=== PATIENT | female | born 1985 | race Caucasian/White ===

== ENCOUNTER 2018-01-19 06:04 | Inpatient (IN) | payer OTHER ==
[2018-01-19] MEDS ORDERED: CITRIC ACID-SODIUM CITRATE 15 ML CUP PO ONE (06:30)
[2018-01-19] MEDS ORDERED: LACTATED RINGERS 1,000 ML IV SCH (06:30)
[2018-01-19] MEDS ORDERED: LACTATED RINGERS 1,000 ML IV ONE (06:30)
[2018-01-19 06:52] VITALS: BMI 25.7
[2018-01-19 07:10] LABS: Basophils % (A) 0 %; Eosinophils # (A) 0.1 k/uL (0-0.7); Eosinophils % (A) 1 %; HCT 36.4 % (34.0-46.0); HGB 12.1 gm/dL (11.4-16.0); Lymphocytes # (A) 1.6 k/uL (1.0-4.8); Lymphocytes % (A) 18 %; MCH 30.7 pg (25.0-35.0); MCHC 33.4 g/dL (31.0-37.0); MCV 92.1 fL (80.0-100.0); Monocytes # (A) 0.6 k/uL (0-1.0); Monocytes % (A) 6 %; Neutrophils # (A) 6.6 k/uL (1.3-7.7); Neutrophils % (A) 74 %; Platelet Count 161 k/uL (150-450); RBC 3.95 m/uL (3.80-5.40); RDW 13.4 % (11.5-15.5); WBC 8.9 k/uL (3.8-10.6)
[2018-01-19] MEDS ORDERED: CLINDAMYCIN 600 MG in DEXTROSE 5% IN WATER 50 ML IVPB STA ×2 (07:37)
[2018-01-19] MEDS ORDERED: KETOROLAC 30 MG/ML 1 ML VIAL ONE (08:07)
[2018-01-19] MEDS ORDERED: MORPHINE SULFATE (PF) 0.3 MG/0.3 ML SYR ONE (08:07)
[2018-01-19] MEDS ORDERED: NALBUPHINE 10 MG/ML VIAL (10ML MDV) ONE (08:07)
[2018-01-19] MEDS ORDERED: OXYTOCIN 10 UNIT/ML 1 ML VIAL ONE (08:07)
[2018-01-19] MEDS ORDERED: DEXAMETHASONE SOD PHOS (MDV) 100 MG/10 ML VIAL ONE (08:07)
[2018-01-19] MEDS ORDERED: ONDANSETRON 4 MG/2 ML VIAL ONE (08:07)
[2018-01-19] MEDS ORDERED: KETOROLAC 30 MG/ML 1 ML VIAL IVP PRN (08:31)
[2018-01-19] MEDS ORDERED: diphenhydrAMINE 50 MG/ML 1 ML VIAL IVP PRN ×3 (08:31→08:46)
[2018-01-19] MEDS ORDERED: NALBUPHINE 10 MG/ML VIAL (10ML MDV) IV PRN (08:31)
[2018-01-19] MEDS ORDERED: HYDROmorphone 1 MG/ML 1 ML SYRINGE IVP PRN (08:31)
[2018-01-19] MEDS ORDERED: NALOXONE 0.4 MG/ML 1 ML VIAL IV PRN (08:31)
[2018-01-19] MEDS ORDERED: ONDANSETRON 4 MG/2 ML VIAL IVP PRN ×2 (08:31→08:46)
[2018-01-19] MEDS ORDERED: SIMETHICONE 80 MG CHEWABLE PO PRN (08:46)
[2018-01-19] MEDS ORDERED: HYDROcodone/APAP 5-325MG 1 EACH TAB PO PRN (08:46)
[2018-01-19] MEDS ORDERED: MEASLES-MUMPS-RUBELLA VACC/PF 12,500 UNIT/0.5 ML VIAL SQ ONE (08:46)
[2018-01-19] MEDS ORDERED: METOCLOPRAMIDE 5 MG/ML 2 ML VIAL IVP PRN (08:46)
[2018-01-19] MEDS ORDERED: diphenhydrAMINE 25 MG CAP PO PRN (08:46)
[2018-01-19] MEDS ORDERED: diphenhydrAMINE 50 MG CAP PO PRN (08:46)
--- NOTE | 2018-01-19 08:49 | P.HPOB ---
History of Present Illness H&P Date: 01/19/18 Chief Complaint: Intrauterine at term: Previous section Sophia is a 32-year-old at 39 weeks gestation who ryes for repeat section. Her Precis course has been, complicated by anemia. She also has hypothyroidism. She did fail her 1 hour Glucola screen but passed her 3 hour Glucola screen. Pertinent labs could be negative blood type Rh antibody was negative. Rubella was immune, hepatitis B surface antigen and RPR were negative as was groupie strep. She has no other issues or concerns and there is a category 1 tracing prior to going to the operating suite. All questions were answered for her prior to proceeding. Risks/benefits/alternatives had previously been thoroughly reviewed. Past Medical History Past Medical History: Thyroid Disorder Additional Past Medical History / Comment(s): Hypothyroidism History of Any Multi-Drug Resistant Organisms: None Reported Past Surgical History: Section Additional Past Surgical History / Comment(s): [place] teeth removed Past Anesthesia/Blood Transfusion Reactions: Postoperative Nausea & Vomiting ( PONV) Past Psychological History: ADD/ADHD Smoking Status: Former smoker Past Alcohol Use History: None Reported Additional Past Alcohol Use History / Comment(s): QUIT SMOKING 2015 Past Drug Use History: None Reported - Past Family History Mother Family Medical History: No Reported History Medications and Allergies Home Medications Medication Instructions Recorded Confirmed Type Ferrous Sulfate [Iron] 325 mg PO DAILY 11/17/17 01/19/18 History Pnv No.95/Ferrous Fum/Folic AC 1 tab PO DAILY 11/17/17 01/19/18 History [ Multivitamin Tablet] Levothyroxine Sodium [Synthroid] 75 mcg PO DAILY 01/14/18 01/19/18 History Allergies Allergy/AdvReac Type Severity Reaction Status Date / Time Penicillins Allergy Rash/Hives Verified 01/19/18 06:14 Exam Osteopathic Statement: *. No significant issues noted on an osteopathic structural exam other than those noted in the History and Physical/Consult. Vital Signs Temp Pulse Resp BP 01/19/18 06:45 98.1 F 65 18 114/61 Intake and Output 01/18/18 01/19/18 01/19/18 22:59 06:59 14:59 Other: Weight 68.039 kg - OBG Physical Exam Breast: both: normal (no masses) Abdomen: bowel sounds normal, no diffuse tenderness, no bruit present, no guarding noted, no hepatomegaly, no splenomegaly, no mass Vulva: both: normal Vagina: normal moisture, no discharge Cervix: no lesion, no discharge Uterus: normal size, normal contour Adnexa: both: normal Anus/Rectum: normal perianal skin, no rectal mass, no hemorrhoids, heme negative Results Result Diagrams: 01/19/18 06:30
--- NOTE | 2018-01-19 08:53 | P.OP ---
Date of Procedure: 01/19/18 Preoperative Diagnosis: Intrauterine at term: Previous section Postoperative Diagnosis: Same Procedure(s) Performed: Repeat low transverse section Anesthesia: spinal Surgeon: Jono Jackson Soot Blower #1: Rosy Travis Estimated Blood Loss (ml): 600 IV fluids (ml): 200 Pathology: none sent Condition: stable Disposition: floor Operative Findings: Male scores of 9 and 9 at one and 5 minutes Jose J weight was 8 lbs. 12 oz. Description of Procedure: Patient was taken to the operating suite where a spinal anesthetic was found be adequate. She was prepped and draped in the normal sterile fashion and placed in the dorsal supine position with leftward tilt. Initially a Pfannenstiel skin incision was made and this incision was then carried through to the underlying layer of the fascia with a second knife. Fascia was then nicked in the midline and this opening was extended laterally with Anaya scissors. Both the superior and inferior aspect of this incision were then grasped tented up and bluntly and sharply dissected off the rectus muscles. Rectus muscles were then divided the midline and sharp dissection through the peritoneum was made. This opening was then extended superiorly and inferiorly with good visualization of both bowel bladder. Bladder was noted be relatively high from previous section during this process remained intact. Once this was accomplished bladder was bluntly dissected out of the operative field and knife was then used to incise uterus. This opening was fully developed with a hemostat and then extended bluntly. Head was then atraumatically delivered nuchal cord 1 reduced. Anterior and posterior shoulders were then delivered with gentle downward upper traction followed by the remainder the baby. Mouth nares were bulb suctioned and umbilical cord was clamped cut usual fashion with nursery personnel present to assume care. Blood was collected for Rh- status. Placenta was then delivered intact and uterus was exteriorized cleared of clots and debris and closed in 2 layers with 0 Vicryl suture. Once excellent hemostasis was obtained 3-0 Vicryl was used to reapproximate the bladder flap. Blood and debris was then suctioned from the posterior cul-de-sac and the uterus was reinserted into the abdomen. Peritoneal layer was then closed with 0 Vicryl suture fascial layer was closed with 0 Vicryl suture one layer of 3-0 Vicryl was used to reapproximate subcuticular tissues. Skin was then closed with 3-0 Vicryl. Sponge, lap, needle counts were all correct 2. Patient was then taken to the recovery room in stable and satisfactory condition.
[2018-01-19] MEDS: LACTATED RINGERS 1,000 ML IV SCH ×2 (10:00→18:24)
[2018-01-19] MEDS: SENNOSIDES-DOCUSATE SODIUM 1 EACH TAB PO SCH (20:02)
[2018-01-19] MEDS: KETOROLAC 30 MG/ML 1 ML VIAL IVP PRN (20:03)
[2018-01-20] MEDS: LACTATED RINGERS 1,000 ML IV SCH (03:30)
[2018-01-20] MEDS: KETOROLAC 30 MG/ML 1 ML VIAL IVP PRN (04:07)
--- NOTE | 2018-01-20 06:25 | P.PN ---
Progress Note - Text Progress Note Date: 01/20/18 32-year-old female status post section with Duramorph spinal. Patient is doing well ambulating well pain is 0/10. However patient does state that she 's had some urinary retention and has been unable to go to the bathroom.
[2018-01-20 07:49] LABS: Basophils % (A) 0 %; Eosinophils % (A) 0 %; HCT 26.3 % (34.0-46.0); Lymphocytes # (A) 2.1 k/uL (1.0-4.8); Lymphocytes % (A) 17 %; MCH 31.8 pg (25.0-35.0); MCHC 34.3 g/dL (31.0-37.0); MCV 92.8 fL (80.0-100.0); Monocytes # (A) 0.7 k/uL (0-1.0); Monocytes % (A) 5 %; Neutrophils # (A) 9.2 k/uL (1.3-7.7); Neutrophils % (A) 76 %; Platelet Count 147 k/uL (150-450); RBC 2.83 m/uL (3.80-5.40); RDW 13.3 % (11.5-15.5); WBC 12.2 k/uL (3.8-10.6)
[2018-01-20] MEDS: ACETAMINOPHEN TAB 325 MG TAB PO PRN ×2 (08:16→20:49)
[2018-01-20] MEDS: SENNOSIDES-DOCUSATE SODIUM 1 EACH TAB PO SCH ×2 (08:16→20:49)
--- NOTE | 2018-01-20 08:50 | P.PNOBGPC ---
Subjective - Subjective Principal diagnosis: POD 1 Patient reports: Reports appetite normal, Reports pain well controlled, Reports ambulating normally [place]: doing well (has not voided. needed straight cath x 2) Objective - Vital Signs Latest vital signs: Vital Signs Temp Pulse Resp BP Pulse Ox 01/20/18 05:00 14 01/20/18 04:00 97.9 F 69 14 98/57 95 01/20/18 03:00 14 01/20/18 01:00 14 01/19/18 23:48 97 01/19/18 23:44 98.3 F 67 16 112/58 97 01/19/18 23:00 16 01/19/18 21:00 16 01/19/18 20:00 97.6 F 59 L 16 105/85 97 01/19/18 19:00 20 01/19/18 17:00 20 01/19/18 15:38 96.8 F L 60 18 107/58 96 01/19/18 15:00 18 01/19/18 13:00 16 01/19/18 12:17 97 01/19/18 12:00 98.3 F 54 L 18 135/65 01/19/18 11:31 16 01/19/18 11:00 55 L 16 144/79 97 01/19/18 10:25 98.2 F 54 L 18 152/63 97 01/19/18 09:55 50 L 18 138/63 01/19/18 09:40 52 L 18 152/71 01/19/18 09:31 16 98 01/19/18 09:25 55 L 18 140/65 99 01/19/18 09:10 51 L 18 146/67 97 01/19/18 08:59 96.8 F L 156/78 Intake and Output 01/19/18 01/20/18 01/20/18 22:59 06:59 14:59 Intake Total 100 100 Output Total 1400 550 Balance -1300 -450 Intake: Oral 100 100 Output: Urine 1400 550 Straight 550 Other: # Voids 0 - Exam Lungs: bilateral: normal Chest: Normal S1, Normal S2 Extremities: Present: normal Abdomen: Present: normal appearance, soft. Absent: distention, tenderness Incision: Present: normal, dry, intact Uterus: Present: normal, firm - Labs Labs: Abnormal Lab Results - Last 24 Hours (Table) 08/14/18 Range/Units 07:22 WBC 12.2 H (3.8-10.6) k/uL RBC 2.83 L (3.80-5.40) m/uL Hgb 9.0 L D (11.4-16.0) gm/dL Hct 26.3 L (34.0-46.0) % Plt Count 147 L (150-450) k/uL Neutrophils # 9.2 H (1.3-7.7) k/uL
[2018-01-20] MEDS: IBUPROFEN 600 MG TAB PO PRN ×2 (11:28→18:20)
[2018-01-21] MEDS: IBUPROFEN 600 MG TAB PO PRN ×2 (00:17→07:03)
[2018-01-21] MEDS: LACTATED RINGERS 1,000 ML IV SCH (04:12)
--- NOTE | 2018-01-21 08:51 | P.DS ---
Providers Date of admission: 01/19/18 06:04 Expected date of discharge: 01/21/18 Attending physician: Jono Jackson Primary care physician: Stated None Hospital Course: Sophia is doing very well post op day 2. She is ambulating, voiding, and she is tolerating her diet. She voices no complaints. Vital signs are stable and afebrile. Heart regular, lungs clear, extremities are without pain. Osteopathic exam is unremarkable. Her incision is otherwise clean dry and intact and she has bowel sounds and is passing flatus. Today she is voiding without difficulty as well. All other questions were answered for her prior to discharge. Prescription for Motrin was sent to the pharmacy at her request. She'll follow up with me in 1 week. Patient Condition at Discharge: Good Plan - Discharge Summary Discharge Rx Participant: Yes New Discharge Prescriptions: New Ibuprofen [Motrin] 600 mg PO Q6HR PRN #30 tab PRN Reason: Pain No Action Pnv No.95/Ferrous Fum/Folic AC [ Multivitamin Tablet] 1 tab PO DAILY Ferrous Sulfate [Iron] 325 mg PO DAILY Levothyroxine Sodium [Synthroid] 75 mcg PO DAILY Discharge Medication List Ferrous Sulfate [Iron] 325 mg PO DAILY 11/17/17 [History] Pnv No.95/Ferrous Fum/Folic AC [ Multivitamin Tablet] 1 tab PO DAILY 04/26 [History] Levothyroxine Sodium [Synthroid] 75 mcg PO DAILY 01/14/18 [History] Ibuprofen [Motrin] 600 mg PO Q6HR PRN #30 tab 01/21/18 [Rx] Follow up Appointment(s)/Referral(s): Jono Jackson DO [Doctor of Osteopathic Medicine] - 1 Week Activity/Diet/Wound Care/Special Instructions: No heavy lifting, limit stairs and driving, and pelvic rest. If any high temperatures, heavy bleeding, or severe pain call my office Discharge Disposition: HOME SELF-CARE
[2018-01-21 09:37] VITALS: BP 103/63; PULSE 87; RESP 18; TEMP 98.5
[2018-01-21] MEDS: SENNOSIDES-DOCUSATE SODIUM 1 EACH TAB PO SCH (09:50)
== END 2018-01-21 12:15 | disposition home or self-care (01) | DRG 766 ==
LOC: 4FBP 06:04
PROVIDERS: ADMIT Obstetrics & Gynecology; ATTEND Obstetrics & Gynecology
PROC: 10D00Z1 Extraction of Products of Conception, Low, Open Approach (ICD-10-PCS; principal; 2018-01-19 08:00)
DX: O34.211 Maternal care for low transverse scar from previous cesarean delivery (principal); O99.02 Anemia complicating childbirth; O99.284 Endocrine, nutritional and metabolic diseases complicating childbirth; E03.9 Hypothyroidism, unspecified; O99.344 Other mental disorders complicating childbirth; F90.9 Attention-deficit hyperactivity disorder, unspecified type; O69.81X0 Labor and delivery complicated by cord around neck, without compression, not applicable or unspecified; O99.89 Other specified diseases and conditions complicating pregnancy, childbirth and the puerperium; R33.9 Retention of urine, unspecified; Z37.0 Single live birth; Z3A.39 39 weeks gestation of pregnancy; Z79.890 Hormone replacement therapy; Z87.891 Personal history of nicotine dependence; Z88.0 Allergy status to penicillin
CPT/HCPCS: 85025; 86850; 86900; 86901; 94760

== ENCOUNTER → 2018-12-30 | Outpatient (CLI) | payer SELFPAY ==
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
== END | disposition home or self-care (01) ==
LOC: RADUSWWP 15:29
PROVIDERS: ATTEND Obstetrics & Gynecology
DX: Z36.9 Encounter for antenatal screening, unspecified (principal)
CPT/HCPCS: 76801; 76813

== ENCOUNTER 2019-05-28 13:56 | Outpatient (CLI) | payer OTHER ==
[2019-05-28 15:29] LABS: Appearance,Urine Clear (Clear); Bacteria,Urine Occasional /hpf; Bilirubin,Urine Negative (Negative); Blood,Urine Negative (Negative); Color,Urine Yellow; Glucose,Urine (UA) Negative (Negative); Ketones,Urine Negative (Negative); Leukocyte Esterase,Urine Large (Negative); Nitrite,Urine Negative (Negative); Protein,Urine Trace (Negative); RBC,Urine 1 /hpf (0-5); Specific Gravity,Urine 1.011 (1.001-1.035); Squamous Epithelial Cell,Urine 5 /hpf (0-4); Urobilinogen,Urine <2.0 mg/dL (<2.0); WBC,Urine 8 /hpf (0-5)
[2019-05-28 15:30] LABS: Hyaline Casts,Urine 1 /lpf (0-2); Mucus,Urine Rare /hpf
[2019-05-28 15:51] LABS: Basophils # (A) 0.1 k/uL (0-0.2); Basophils % (A) 2 %; Eosinophils % (A) 0 %; HCT 29.8 % (34.0-46.0); HGB 10.1 gm/dL (11.4-16.0); Lymphocytes # (A) 1.7 k/uL (1.0-4.8); Lymphocytes % (A) 22 %; MCH 31.2 pg (25.0-35.0); MCHC 33.9 g/dL (31.0-37.0); Mean Platelet Volume 9.1; Monocytes # (A) 0.4 k/uL (0-1.0); Monocytes % (A) 6 %; Neutrophils # (A) 5.2 k/uL (1.3-7.7); Neutrophils % (A) 67 %; Platelet Count 271 k/uL (150-450); RBC 3.24 m/uL (3.80-5.40); RDW 13.8 % (11.5-15.5); WBC 7.7 k/uL (3.8-10.6)
== END 2019-05-28 17:45 | disposition home or self-care (01) ==
LOC: FBPOP 13:56
PROVIDERS: ATTEND Obstetrics & Gynecology
DX: O26.899 Other specified pregnancy related conditions, unspecified trimester (principal)
CPT/HCPCS: 59025; 81001; 85025; 87502

== ENCOUNTER 2019-06-21 12:55 | Observation (INO) | payer OTHER ==
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
[2019-06-21 17:02] VITALS: BP 120/64
[2019-06-21] MEDS ORDERED: ACETAMINOPHEN TAB 500 MG TAB PO PRN (17:06)
[2019-06-22 00:35] VITALS: PULSE 83; RESP 16; TEMP 97.4
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
== END 2019-06-22 12:36 | disposition home or self-care (01) ==
LOC: FBPOP 12:55 → 4FBP 16:19
PROVIDERS: ADMIT Obstetrics & Gynecology; ATTEND Obstetrics & Gynecology
DX: O47.03 False labor before 37 completed weeks of gestation, third trimester (principal); Z3A.36 36 weeks gestation of pregnancy; O99.283 Endocrine, nutritional and metabolic diseases complicating pregnancy, third trimester; E03.9 Hypothyroidism, unspecified; Z87.891 Personal history of nicotine dependence; Z88.0 Allergy status to penicillin; Z79.899 Other long term (current) drug therapy
CPT/HCPCS: 59025; 76815; G0463; G0378 ×2; 99215

== ENCOUNTER 2019-07-04 21:13 | Inpatient (IN) | payer OTHER ==
[2019-07-04] MEDS ORDERED: LACTATED RINGERS 1,000 ML IV ONE (21:48)
[2019-07-04] MEDS ORDERED: CITRIC ACID-SODIUM CITRATE 15 ML CUP PO ONE (21:48)
[2019-07-04 22:13] LABS: Basophils # (A) 0.1 k/uL (0-0.2); Basophils % (A) 1 %; Eosinophils # (A) 0.1 k/uL (0-0.7); Eosinophils % (A) 1 %; HCT 31.8 % (34.0-46.0); HGB 10.8 gm/dL (11.4-16.0); Lymphocytes # (A) 1.7 k/uL (1.0-4.8); Lymphocytes % (A) 24 %; MCH 31.2 pg (25.0-35.0); MCV 91.9 fL (80.0-100.0); Mean Platelet Volume 10.3; Monocytes # (A) 0.4 k/uL (0-1.0); Monocytes % (A) 6 %; Neutrophils # (A) 4.7 k/uL (1.3-7.7); Neutrophils % (A) 66 %; Platelet Count 188 k/uL (150-450); RBC 3.47 m/uL (3.80-5.40); RDW 13.9 % (11.5-15.5); WBC 7.2 k/uL (3.8-10.6)
--- NOTE | 2019-07-04 22:27 | P.HPOB ---
History of Present Illness H&P Date: 07/04/19 Chief Complaint: Spontaneous rupture of membranes This is a 33-year-old female 3 para 2 with an estimated date of confinement of 07/16/2019, estimated gestational age of 38-2/7 weeks, who presents with complaints of spontaneous rupture membranes at approximately 8 PM tonight. She has been feeling irregular mild contractions since that time. care has been with Dr. Jackson. She did have an elevated 1 hour: And 3 hour Glucola was within normal limits. She did have an EIF present on anatomy ultrasound and did get referred to maternal medicine. No concerns were found there. labs: Hepatitis B surface antigen-negative RPR-nonreactive Rubella-immune Blood type-B- Antibody screen-negative RhoGAM was given at approximately 28 weeks Hemoglobin-12.1 Random glucose-92 GC/chlamydia-negative Group B streptococcus-negative Obstetrical history: . History of 2 deliveries. Gynecologic history: No history of sexual transmitted diseases. Social history: She is . She works full-time. Review of Systems Constitutional: Denies chills, Denies fever Eyes: denies blurred vision, denies pain Ears, nose, mouth and throat: Denies headache, Denies sore throat Cardiovascular: Denies chest pain, Denies shortness of breath Respiratory: Denies cough Gastrointestinal: Reports abdominal pain (Irregular contractions) Genitourinary: Reports pelvic pain, Reports Musculoskeletal: Reports low back pain Integumentary: Denies pruritus, Denies rash Neurological: Denies numbness, Denies weakness Psychiatric: Denies anxiety, Denies depression Past Medical History Past Medical History: Thyroid Disorder Additional Past Medical History / Comment(s): Hypothyroidism-not currently on any medication History of Any Multi-Drug Resistant Organisms: None Reported Past Surgical History: Section (2) Additional Past Surgical History / Comment(s): [place] teeth removed Past Anesthesia/Blood Transfusion Reactions: Postoperative Nausea & Vomiting (PONV) Past Psychological History: ADD/ADHD Smoking Status: Former smoker Past Alcohol Use History: None Reported Additional Past Alcohol Use History / Comment(s): QUIT SMOKING 2015 Past Drug Use History: None Reported - Past Family History Mother Family Medical History: Thyroid Disorder Additional Family Medical History / Comment(s): hypothyroidism Father Family Medical History: Diabetes Mellitus Medications and Allergies Home Medications Medication Instructions Recorded Confirmed Type Ferrous Sulfate [Iron] 325 mg PO DAILY 11/17/17 07/04/19 History Pnv No.95/Ferrous Fum/Folic AC 1 tab PO DAILY 11/17/17 07/04/19 History [ Multivitamin Tablet] Allergies Allergy/AdvReac Type Severity Reaction Status Date / Time Penicillins Allergy Intermediate Rash/Hives Verified 07/04/19 21:43 Exam Osteopathic Statement: *. No significant issues noted on an osteopathic structural exam other than those noted in the History and Physical/Consult. Intake and Output 07/04/19 07/04/19 07/04/19 06:59 14:59 22:59 Other: Weight 67.585 kg HEENT: Within normal limits Heart: Regular rate and rhythm Lungs: Clear to auscultation bilaterally Abdomen: Cervix: Closed thick and high. Clear fluid is noted with positive amnisure. heart tones: Category 1 Contractions: Irregular Extremities: Negative Homans Results Result Diagrams: 07/04/19 22:01 Abnormal Lab Results - Last 24 Hours (Table) 07/04/19 Range/Units 22:01 RBC 3.47 L (3.80-5.40) m/uL Hgb 10.8 L (11.4-16.0) gm/dL Hct 31.8 L (34.0-46.0) % Assessment and Plan (1) 38 weeks gestation of Current Visit: Yes Status: Acute Code(s): Z3A.38 - 38 WEEKS GESTATION OF SNOMED Code(s): 91764861 (2) Previous delivery affecting Current Visit: Yes Status: Acute Code(s): O34.219 - MATERNAL CARE FOR UNSP TYPE SCAR FROM PREVIOUS DEL SNOMED Code(s): 112214886 (3) Family planning Current Visit: Yes Status: Acute Code(s): Z30.09 - ENCOUNTER FOR OTH GENERAL CNSL AND ADVICE ON CONTRACEPTION SNOMED Code(s): 563920013 Plan: Plan is admission for spontaneous rupture of membranes. We'll proceed with repeat section with bilateral partial esophagectomy for family planning. I have discussed the risks, benefits, and alternative therapies for the above- mentioned procedure and for both sedation/anesthesia as well as necessary blood products administration, if indicated, as they pertain to this patient. The patient has indicated her understanding and acceptance of the risks and procedur es discussed.
[2019-07-04] MEDS ORDERED: CLINDAMYCIN 900 MG in DEXTROSE 5% IN WATER 50 ML IVPB ONE ×2 (22:30)
[2019-07-04] MEDS ORDERED: ONDANSETRON 4 MG/2 ML VIAL ONE (22:33)
[2019-07-04] MEDS ORDERED: KETOROLAC 30 MG/ML 1 ML VIAL ONE (22:33)
[2019-07-04] MEDS ORDERED: MORPHINE SULFATE (PF) 0.3 MG/0.3 ML SYR ONE (22:33)
[2019-07-04] MEDS ORDERED: OXYTOCIN 10 UNIT/ML 1 ML VIAL ONE (22:33)
--- NOTE | 2019-07-04 23:30 | P.OP ---
Date of Procedure: 07/04/19 Preoperative Diagnosis: 1. Intrauterine at 38-2/7 weeks. 2. Spontaneous rupture of membranes. 3. History of previous section. 4. Family-planning. Postoperative Diagnosis: Same Procedure(s) Performed: Repeat low transverse section with bilateral partial salpingectomy Anesthesia: spinal (Duramorph) Surgeon: Rosy Travis Palliative Care Specialist #1: Lázaro Lynn Estimated Blood Loss (ml): 500 Pathology: other (Portions of right and left fallopian tubes) Condition: stable Disposition: floor Indications for Procedure: This is a 33-year-old female 3 para 2 at 38-2/7 weeks who presented with spontaneous rupture of membranes. She was having irregular contractions and her cervix was closed. She has consented for repeat section with bilateral partial salpingectomy. I have discussed the risks, benefits, and alternative therapies for the above- mentioned procedure and for both sedation/anesthesia as well as necessary blood products administration, if indicated, as they pertain to this patient. The patient has indicated her understanding and acceptance of the risks and procedures discussed. Operative Findings: A viable female is noted in the vertex presentation with scores of 8 at 1 minute and 9 at 5 minutes and weight of 7 lbs. 8 oz. Normal uterus tubes and ovaries are noted. Description of Procedure: The patient is taken to the operating room where she is placed in the dorsal supine position with leftward tilt after spinal Duramorph anesthesia is given. She is prepped and draped in the normal sterile fashion. Skin was tested and found to be adequately anesthetized. A Pfannenstiel skin incision was made with a scalpel through the previous laparotomy scar. A second knife was used to carry the incision down to the underlying layer of fascia. The fascia was nicked in the midline with a scalpel and then extended laterally bilaterally with Anaya scissors. The anterior lip of the fascia was grasped with 2 Madleine clamps and then dissected off the underlying rectus muscle in the midline with Anaya scissors. The inferior aspect of the fascial incision was grasped with 2 Madeline clamps and dissected off the underlying rectus muscle and the midline with Anaya scissors. Next the peritoneum layer was tented up with 2 hemostats and then entered sharply with the scalpel. The incision is extended superiorly and inferiorly with Metzenbaum scissors. Next a DeLee retractor is placed. The vesicouterine peritoneum is entered sharply with Metzenbaum scissors and extended laterally bilaterally with Metzenbaum scissors and then the bladder flap is pushed inferiorly. The lower uterine segment is incised in transverse fashion with the scalpel and then bluntly entered with a hemostat. Clear fluid is noted. The incision was then extended laterally bilaterally with 2 fingers. Next the infant's head is delivered through the incision. Nose and mouth are bulb suctioned. The remainder of the is easily delivered and placed on mother's abdomen. Cord is clamped and cut. is taken to warmer by nursing staff. Uterine fundus is gently massaged and placenta is delivered manually. Uterus is exteriorized and cleared of all clots and debris. Uterine incision is closed with 0 Vicryl suture in a running locked fashion. A second layer of 0 Vicryl suture is used in a running fashion for hemostasis. Once gloria quate hemostasis as assured, the vesicouterine peritoneum is reapproximated with 2-0 Vicryl suture in a running fashion. Next the right fallopian tube is grasped in the midportion with a hemostat. The mesosalpinx is entered with Bovie cautery. 0 Vicryl suture is tied 2 times around both the proximal and distal portion of the tube. The knuckle of tube is removed with Metzenbaum scissors. The ends of the tube are cauterized with Bovie cautery. Good hemostasis is noted. The same procedure is carried out on the left fallopian tube. Posterior cul-de-sac is suctioned of all clots and debris. Uterus is returned to the abdomen. Incision is noted to be hemostatic. Both tubal sites are noted to be hemostatic. Peritoneal layer is closed with 0 Vicryl suture in a running fashion. Muscle layer is reapproximated with 0 Vicryl suture in interrupted fashion. Fascia layer is then closed with 0 PDS suture with 2 sutures meeting in the midline and the knots buried in either side and in the midline. The subcutaneous tissue was then closed with 2-0 Vicryl suture. Skin layer was then closed with dileep. All sponge and needle counts are correct. The patient is taken to recovery room in stable condition.
[2019-07-05] MEDS ORDERED: NALOXONE 0.4 MG/ML 1 ML VIAL IV PRN (01:14)
[2019-07-05] MEDS ORDERED: diphenhydrAMINE 50 MG CAP PO PRN (01:14)
[2019-07-05] MEDS ORDERED: SIMETHICONE 80 MG CHEWABLE PO PRN (01:14)
[2019-07-05] MEDS ORDERED: ONDANSETRON 4 MG/2 ML VIAL IVP PRN (01:14)
[2019-07-05] MEDS ORDERED: METOCLOPRAMIDE 5 MG/ML 2 ML VIAL IVP PRN (01:14)
[2019-07-05] MEDS ORDERED: OXYTOCIN 20 UNITS/1000 ML NS 1,000 ML IV SCH (01:14)
[2019-07-05] MEDS ORDERED: ACETAMINOPHEN TAB 325 MG TAB PO PRN (01:14)
[2019-07-05] MEDS ORDERED: HYDROcodone/APAP 5-325MG 1 EACH TAB PO PRN (01:14)
[2019-07-05] MEDS ORDERED: diphenhydrAMINE 25 MG CAP PO PRN (01:14)
[2019-07-05] MEDS ORDERED: ZOLPIDEM 5 MG TAB PO PRN (01:14)
[2019-07-05] MEDS ORDERED: diphenhydrAMINE 50 MG/ML 1 ML VIAL IVP PRN ×2 (01:14)
[2019-07-05] MEDS ORDERED: Rhogam IMMUNE GLOBULIN 1,500 UNIT/1 ML IM ONE (03:48)
[2019-07-05] MEDS: LACTATED RINGERS 1,000 ML IV SCH ×3 (03:49→17:28)
--- NOTE | 2019-07-05 07:21 | P.PN ---
Progress Note - Text 07/05 653am 33-year-old female status post with a spinal anesthetic along with the Duramorph. Patient seen and evaluated this morning for postop pain control, has VAS of 2 with complaints of mild nausea. She was complaining of pruritus which should subside by the end of the day.
[2019-07-05] MEDS: SENNOSIDES-DOCUSATE SODIUM 1 EACH TAB PO SCH ×2 (07:50→19:47)
[2019-07-05 08:19] LABS: Basophils % (A) 0 %; Eosinophils # (A) 0.1 k/uL (0-0.7); Eosinophils % (A) 1 %; HCT 30.9 % (34.0-46.0); HGB 10.2 gm/dL (11.4-16.0); Lymphocytes # (A) 1.8 k/uL (1.0-4.8); Lymphocytes % (A) 19 %; MCH 30.3 pg (25.0-35.0); MCHC 32.9 g/dL (31.0-37.0); MCV 92.1 fL (80.0-100.0); Mean Platelet Volume 10.8; Monocytes # (A) 0.5 k/uL (0-1.0); Monocytes % (A) 5 %; Neutrophils # (A) 7.1 k/uL (1.3-7.7); Neutrophils % (A) 73 %; Platelet Count 173 k/uL (150-450); RBC 3.36 m/uL (3.80-5.40); RDW 13.9 % (11.5-15.5); WBC 9.7 k/uL (3.8-10.6)
--- NOTE | 2019-07-05 08:36 | P.PNOBGPC ---
Subjective - Subjective Principal diagnosis: Postop day 1 Interval history: Sophia is doing very well postop day 1. She is involuting, voiding and tolerating her diet. She voices no complaints Patient reports: Reports appetite normal, Reports voiding normally, Reports pain well controlled, Reports ambulating normally [place]: doing well Objective - Vital Signs Latest vital signs: Vital Signs Temp Pulse Resp BP Pulse Ox 07/05/19 07:50 98.7 F 61 16 105/65 98 07/05/19 04:00 98.1 F 56 L 14 106/58 96 07/05/19 01:35 98.2 F 55 L 14 99/54 97 07/05/19 01:05 55 L 14 102/55 96 07/05/19 00:35 99.5 F 58 L 16 98/57 96 07/05/19 00:20 60 14 98/53 96 07/05/19 00:05 64 14 95/52 96 07/04/19 23:50 75 14 94/51 95 07/04/19 23:35 97.7 F 71 16 100/53 96 07/04/19 21:48 96.5 F L 84 14 111/61 07/04/19 21:35 96.5 F L 84 14 111/61 Intake and Output 07/04/19 07/05/19 07/05/19 22:59 06:59 14:59 Intake Total 800 Output Total 1600 Balance -800 Intake: IV 800 Output: Urine 1100 Estimated Blood Loss 500 Other: Voiding Method Indwelling Catheter Indwelling Catheter Weight 67.585 kg - Exam Lungs: bilateral: normal Chest: Normal S1, Normal S2 Extremities: Present: normal Abdomen: Present: normal appearance, soft. Absent: distention, tenderness Incision: Present: normal, dry, intact Uterus: Present: normal, firm - Labs Labs: Abnormal Lab Results - Last 24 Hours (Table) 07/04/19 07/05/19 Range/Units 22:01 07:21 RBC 3.47 L 3.36 L (3.80-5.40) m/uL Hgb 10.8 L 10.2 L (11.4-16.0) gm/dL Hct 31.8 L 30.9 L (34.0-46.0) %
[2019-07-05] MEDS: KETOROLAC 30 MG/ML 1 ML VIAL IVP PRN ×2 (09:57→16:45)
[2019-07-05] MEDS: IBUPROFEN 600 MG TAB PO PRN (23:45)
[2019-07-06] MEDS: HYDROcodone/APAP 7.5-325MG 1 EACH TAB PO PRN ×2 (03:08→09:00)
[2019-07-06] MEDS: IBUPROFEN 600 MG TAB PO PRN (07:58)
[2019-07-06 08:22] VITALS: BP 102/64; PULSE 70; RESP 20; TEMP 97.9
--- NOTE | 2019-07-06 08:34 | P.DS ---
Providers Date of admission: 07/04/19 21:40 Expected date of discharge: 07/06/19 Attending physician: Jono Jackson Primary care physician: Stated None Hospital Course: Sophia is doing very well post op day 2. She is ambulating, voiding and tolerating her diet. She voices no complaints. Vital signs are stable and afebrile. Heart regular, lungs clear, extremity without pain. Abdomen is soft her incision is clean dry and intact. Assessment postop day 2. Plan discharged home follow up with me in 1 week. We'll have her follow-up in the office on or Friday for staple removal as it is been less than 48 hours from surgery. All the questions are answered for her at this time and she is stable for discharge this time. Discharge instructions were thoroughly reviewed. Prescription for Motrin and [place] for it pharmacy. Patient Condition at Discharge: Good Plan - Discharge Summary New Discharge Prescriptions: New Ibuprofen [Motrin] 600 mg PO Q6HR PRN #30 tab PRN Reason: Pain HYDROcodone/APAP 5-325MG [[place] 5-325] 1 tab PO Q4HR PRN #30 tab PRN Reason: Pain No Action Pnv No.95/Ferrous Fum/Folic AC [ Multivitamin Tablet] 1 tab PO DAILY Ferrous Sulfate [Iron] 325 mg PO DAILY Discharge Medication List Ferrous Sulfate [Iron] 325 mg PO DAILY 11/17/17 [History] Pnv No.95/Ferrous Fum/Folic AC [ Multivitamin Tablet] 1 tab PO DAILY 11/17/17 [History] HYDROcodone/APAP 5-325MG [[place] 5-325] 1 tab PO Q4HR PRN #30 tab 07/06/19 [Rx] Ibuprofen [Motrin] 600 mg PO Q6HR PRN #30 tab 07/06/19 [Rx] Follow up Appointment(s)/Referral(s): Jono Jackson DO [Doctor of Osteopathic Medicine] - 1 Week Activity/Diet/Wound Care/Special Instructions: No heavy lifting, limit stairs and driving, and pelvic rest. If any high temperatures, heavy bleeding, or severe pain call my office Discharge Disposition: HOME SELF-CARE
== END 2019-07-06 14:00 | disposition home or self-care (01) | DRG 785 ==
LOC: FBPOP 21:13 → 4FBP 21:40
PROVIDERS: ADMIT Obstetrics & Gynecology; ATTEND Obstetrics & Gynecology
PROC: 0UB70ZZ Excision of Bilateral Fallopian Tubes, Open Approach (ICD-10-PCS; principal; 2019-07-04 22:40)
PROC: 10D00Z1 Extraction of Products of Conception, Low, Open Approach (ICD-10-PCS; principal; 2019-07-04 22:40)
DX: O34.211 Maternal care for low transverse scar from previous cesarean delivery (principal); O99.284 Endocrine, nutritional and metabolic diseases complicating childbirth; E03.9 Hypothyroidism, unspecified; O99.344 Other mental disorders complicating childbirth; F90.9 Attention-deficit hyperactivity disorder, unspecified type; O99.72 Diseases of the skin and subcutaneous tissue complicating childbirth; L29.9 Pruritus, unspecified; Z37.0 Single live birth; Z3A.38 38 weeks gestation of pregnancy; Z87.891 Personal history of nicotine dependence; Z88.0 Allergy status to penicillin; Z79.899 Other long term (current) drug therapy; Z83.3 Family history of diabetes mellitus; Z83.49 Family history of other endocrine, nutritional and metabolic diseases
CPT/HCPCS: 59025; 85025; 85461; 86850; 86870; 86880; 86900; 86901; 88302; 99213